=== PATIENT | male | born 1960 | race Hispanic/Latino ===

== ENCOUNTER → 2019-05-13 | Outpatient (CLI) | payer MEDICARE ==
[~2019-05-13] MED LIST: ALBUHFA IH; LORA-705 PO; MELO-108 PO; MIRALAX PO; OLAN10TA3 PO; OMEP40CA13 PO; PRAV20TA4 PO; [UNRECOGNIZED DRUG - OTHER] TP
--- NOTE | 2019-05-13 14:27 | NUR ---
MBSS COMPLETED. NON-TRANSIENT PENETRATION WITH ALL TEXTURES. RECOMMEND NPO, LONG-TERM ALTERNATE MEANS OF NUTRITION/HYDRATION. RECOMMENDATIONS; 1. GI CONSULT 2. ENT CONSULT RESULTS AND RECOMMENDATIONS DISCUSSES WITH PUBLIC AFFAIRS MANAGER CHEN GUERRERO AND PROVIDED VIA WRITTEN MODALITY. ROUGE PRESSER CONTACTED DR. HOOD'S OFFICE VIA TELEPHONE TO REPORT RESULTS AND RECOMMENDATIONS. ALL QUESTIONS ANSWERED AT THIS TIME. Addendum: 05/13/19 at 1430 by RUTH DEAN [facility] Amended: Links added.
== END | disposition home or self-care (01) ==
LOC: RAH 10:53
PROVIDERS: ATTEND Internal Medicine
DX: R13.13 Dysphagia, pharyngeal phase (principal); K21.9 Gastro-esophageal reflux disease without esophagitis; F20.9 Schizophrenia, unspecified
CPT/HCPCS: 74230; 92611

== ENCOUNTER 2021-01-09 18:41 | Emergency (ER) | payer MEDICARE ==
[~2021-01-09] VITALS: Ht 165.1 cm; Wt 54.4 kg
[~2021-01-09 18:41] MED LIST changes: +LORA-699 PO; -LORA-705 PO; -OMEP40CA13 PO; +OMEP40CA21 PO
[2021-01-09 19:08] VITALS: BP 108/65
[2021-01-09] MEDS ORDERED: DIATR MEGLU/DIATRIZOATE SODIUM 30 ML BOTTLE ONE (19:35)
[2021-01-09 20:07] VITALS: BP 116/63
== END 2021-01-09 20:12 | disposition home or self-care (01) ==
LOC: EDH 18:41
DX: K94.23 Gastrostomy malfunction (principal); Z79.1 Long term (current) use of non-steroidal anti-inflammatories (NSAID); Z79.899 Other long term (current) drug therapy
CPT/HCPCS: 43762; 74018; 99284; Q9963

== ENCOUNTER 2022-01-03 07:33 | Emergency (ER) | payer MEDICARE ==
[~2022-01-03] VITALS: Ht 165.1 cm; Wt 63.1 kg
[2022-01-03] MEDS ORDERED: DiphenhydrAMINE HCL 50 MG/ML VIAL IM ONE (08:00)
[2022-01-03] MEDS ORDERED: DIATR MEGLU/DIATRIZOATE SODIUM 30 ML BOTTLE ONE (09:11)
[2022-01-03] MEDS ORDERED: BACITRACIN 1 EACH PACKET TP ONE (09:19)
[2022-01-03 09:26] VITALS: BP 111/62
== END 2022-01-03 10:15 | disposition home or self-care (01) ==
LOC: EDH 07:33
DX: K94.23 Gastrostomy malfunction (principal); E78.00 Pure hypercholesterolemia, unspecified; F20.9 Schizophrenia, unspecified; K21.9 Gastro-esophageal reflux disease without esophagitis; Z79.1 Long term (current) use of non-steroidal anti-inflammatories (NSAID)
CPT/HCPCS: 99284; 43762; 74018; 96372; J1200; Q9963

== ENCOUNTER 2022-06-02 08:00 | Emergency (ER) | payer MEDICARE ==
[~2022-06-02] VITALS: Ht 175.3 cm; Wt 62.1 kg
[2022-06-02 08:02] VITALS: BP 102/58
[2022-06-02] MEDS ORDERED: DIATR MEGLU/DIATRIZOATE SODIUM 30 ML BOTTLE ONE (08:52)
== END 2022-06-02 10:05 | disposition home or self-care (01) ==
LOC: EDH 08:00
DX: Z43.1 Encounter for attention to gastrostomy (principal); K21.9 Gastro-esophageal reflux disease without esophagitis; E78.00 Pure hypercholesterolemia, unspecified; F20.9 Schizophrenia, unspecified; Z79.1 Long term (current) use of non-steroidal anti-inflammatories (NSAID); Z79.899 Other long term (current) drug therapy
CPT/HCPCS: 99284; 43762; 74018 ×2; Q9963

== ENCOUNTER 2022-07-31 08:34 | Emergency (ER) | payer MEDICARE ==
[~2022-07-31] VITALS: Ht 172.7 cm; Wt 57.2 kg
[2022-07-31] MEDS ORDERED: HALOPERIDOL INJ 5 MG/ML VIAL IV STA (09:07)
[2022-07-31] MEDS ORDERED: HALOPERIDOL INJ 5 MG/ML VIAL IV SCH (09:30)
[2022-07-31] MEDS ORDERED: LORAZEPAM 2 MG/ML 1 ML VIAL IVP ONE (09:30)
[2022-07-31] MEDS ORDERED: DIATR MEGLU/DIATRIZOATE SODIUM 30 ML BOTTLE ONE (09:58)
[2022-07-31 10:58] VITALS: BP 107/60
== END 2022-07-31 11:04 | disposition home or self-care (01) ==
LOC: EDH 08:34
DX: K94.23 Gastrostomy malfunction (principal); E78.00 Pure hypercholesterolemia, unspecified; K21.9 Gastro-esophageal reflux disease without esophagitis; F20.9 Schizophrenia, unspecified; Z88.6 Allergy status to analgesic agent; Z79.899 Other long term (current) drug therapy
CPT/HCPCS: 99285; 43762; 96374; 96375; 74018; Q9963; J1630; J2060

== ENCOUNTER 2022-09-04 17:26 | Emergency (ER) | payer MEDICARE ==
[~2022-09-04] VITALS: Ht 170.2 cm; Wt 61.7 kg
[2022-09-04] MEDS ORDERED: DIATR MEGLU/DIATRIZOATE SODIUM 30 ML BOTTLE ONE (20:45)
[2022-09-04 22:47] VITALS: BP 98/60
== END 2022-09-04 22:49 | disposition home or self-care (01) ==
LOC: EDH 17:26
DX: K94.23 Gastrostomy malfunction (principal); E78.00 Pure hypercholesterolemia, unspecified; F20.9 Schizophrenia, unspecified; K21.9 Gastro-esophageal reflux disease without esophagitis; Z79.1 Long term (current) use of non-steroidal anti-inflammatories (NSAID); Z88.6 Allergy status to analgesic agent
CPT/HCPCS: 99284; 43762; 74018; Q9963

== ENCOUNTER 2023-01-10 15:43 | Emergency (ER) | payer MEDICARE ==
[~2023-01-10] VITALS: Ht 165.1 cm; Wt 63.5 kg
[2023-01-10 15:46] VITALS: PULSE 60; RESP 16
[2023-01-10 15:50] VITALS: BP 106/41; O2SAT 96
[2023-01-10] MEDS ORDERED: DIATR MEGLU/DIATRIZOATE SODIUM 30 ML BOTTLE ONE (16:11)
== END 2023-01-10 17:04 | disposition home or self-care (01) ==
LOC: EDH 15:43
DX: K94.23 Gastrostomy malfunction (principal); E78.00 Pure hypercholesterolemia, unspecified; F20.9 Schizophrenia, unspecified; K21.9 Gastro-esophageal reflux disease without esophagitis; Z88.6 Allergy status to analgesic agent; Y83.9 Surgical procedure, unspecified as the cause of abnormal reaction of the patient, or of later complication, without mention of misadventure at the time of the procedure; Y82.8 Other medical devices associated with adverse incidents
CPT/HCPCS: 99284; 43762; 74018; Q9963

== ENCOUNTER 2023-01-21 20:37 | Emergency (ER) | payer MEDICARE ==
[~2023-01-21] VITALS: Ht 177.8 cm; Wt 83.9 kg
[2023-01-21 20:38] VITALS: BP 98/55; PULSE 59; RESP 16; O2SAT 100
[2023-01-21] MEDS ORDERED: DIATR MEGLU/DIATRIZOATE SODIUM 30 ML BOTTLE ONE (21:23)
== END 2023-01-21 22:52 | disposition home or self-care (01) ==
LOC: EDH 20:37
DX: K94.23 Gastrostomy malfunction (principal); K21.9 Gastro-esophageal reflux disease without esophagitis; E78.00 Pure hypercholesterolemia, unspecified; F20.9 Schizophrenia, unspecified; Z88.6 Allergy status to analgesic agent
CPT/HCPCS: 99284; 43762; 74018; Q9963

== ENCOUNTER 2023-01-28 00:09 | Emergency (ER) | payer MEDICARE ==
[~2023-01-28] VITALS: Ht 162.6 cm; Wt 57.2 kg
[2023-01-28] MEDS ORDERED: DIATR MEGLU/DIATRIZOATE SODIUM 30 ML BOTTLE ONE (02:04)
[2023-01-28 02:15] VITALS: BP 114/65; PULSE 78; RESP 16; O2SAT 98
== END 2023-01-28 02:19 ==
LOC: EDH 00:09
DX: K94.23 Gastrostomy malfunction (principal); E78.00 Pure hypercholesterolemia, unspecified; K21.9 Gastro-esophageal reflux disease without esophagitis; F20.9 Schizophrenia, unspecified
CPT/HCPCS: 99284; 43762; 74018; Q9963

== ENCOUNTER 2023-05-21 08:15 | Emergency (ER) | payer MEDICARE ==
[~2023-05-21] VITALS: Ht 172.7 cm; Wt 68.3 kg
[2023-05-21] MEDS ORDERED: KETAMINE 50MG/ML SYRINGE 50 MG/ML DISP.SYRIN IV ONE (09:30)
[2023-05-21] MEDS ORDERED: LACTATED RINGERS 1000ML 1,000 ML IV ONE (09:30)
[2023-05-21 10:37] VITALS: BP 115/64; PULSE 58; RESP 16; O2SAT 100
[2023-05-21] MEDS ORDERED: DIATR MEGLU/DIATRIZOATE SODIUM 30 ML BOTTLE ONE (10:42)
== END 2023-05-21 11:39 | disposition home or self-care (01) ==
LOC: EDH 08:15
DX: T85.598A Other mechanical complication of other gastrointestinal prosthetic devices, implants and grafts, initial encounter (principal); E78.00 Pure hypercholesterolemia, unspecified; F20.9 Schizophrenia, unspecified; K21.9 Gastro-esophageal reflux disease without esophagitis; Z88.6 Allergy status to analgesic agent; Y83.8 Other surgical procedures as the cause of abnormal reaction of the patient, or of later complication, without mention of misadventure at the time of the procedure; Y92.89 Other specified places as the place of occurrence of the external cause
CPT/HCPCS: 99284; 96374; 96361; 74018; J7120; Q9963; J3490

== ENCOUNTER 2023-07-03 08:25 | Emergency (ER) | payer MEDICARE ==
[~2023-07-03] VITALS: Ht 167.6 cm; Wt 64.0 kg
[2023-07-03 08:26] VITALS: BP 92/54; PULSE 74; RESP 18
[2023-07-03] MEDS ORDERED: DIATR MEGLU/DIATRIZOATE SODIUM 30 ML BOTTLE ONE (09:53)
== END 2023-07-03 11:39 | disposition home or self-care (01) ==
LOC: EDH 08:25
DX: Z43.1 Encounter for attention to gastrostomy (principal); E78.00 Pure hypercholesterolemia, unspecified; K21.9 Gastro-esophageal reflux disease without esophagitis; F20.9 Schizophrenia, unspecified; Z79.899 Other long term (current) drug therapy; Z98.890 Other specified postprocedural states
CPT/HCPCS: 99284; 43762; 74018; Q9963

== ENCOUNTER → 2023-07-17 | Outpatient (CLI) | payer MEDICARE | END | disposition home or self-care (01) | LOC: RAH 13:16 | PROVIDERS: ATTEND Internal Medicine | DX: R63.4 Abnormal weight loss (principal); R13.10 Dysphagia, unspecified; K31.84 Gastroparesis | CPT/HCPCS: 74230; 92611 ==

== ENCOUNTER 2023-09-26 07:52 | Emergency (ER) | payer MEDICARE ==
[~2023-09-26] VITALS: Ht 172.7 cm; Wt 65.8 kg
[2023-09-26 10:56] VITALS: BP 107/67; PULSE 61; RESP 16; O2SAT 97
== END 2023-09-26 10:58 | disposition home or self-care (01) ==
LOC: EDH 07:52
DX: Z44.8 Encounter for fitting and adjustment of other external prosthetic devices (principal); E78.00 Pure hypercholesterolemia, unspecified; F20.9 Schizophrenia, unspecified; K21.9 Gastro-esophageal reflux disease without esophagitis; Z88.6 Allergy status to analgesic agent; Z98.890 Other specified postprocedural states; Z79.899 Other long term (current) drug therapy
CPT/HCPCS: 74018

== ENCOUNTER 2023-09-26 19:06 | Emergency (ER) | payer MEDICARE ==
[~2023-09-26] VITALS: Ht 177.8 cm; Wt 70.3 kg
[2023-09-26] MEDS ORDERED: DIATR MEGLU/DIATRIZOATE SODIUM 30 ML BOTTLE ONE (22:51)
[2023-09-26 23:12] VITALS: BP 122/53; PULSE 53; RESP 16; O2SAT 99
== END 2023-09-26 23:23 | disposition home health service (06) ==
LOC: EDH 19:06
DX: K94.23 Gastrostomy malfunction (principal); K21.9 Gastro-esophageal reflux disease without esophagitis; E78.00 Pure hypercholesterolemia, unspecified; F20.9 Schizophrenia, unspecified; Z88.6 Allergy status to analgesic agent
CPT/HCPCS: 99284 ×2; 43762; 74018 ×2; Q9963 ×2

== ENCOUNTER 2024-03-05 07:33 | Day surgery (SDC) | payer MEDICARE ==
[~2024-03-05] VITALS: Ht 170.2 cm; Wt 86.2 kg
[2024-03-05] VITALS (11 sets, daily range): BP systolic 95–111; BP diastolic 49–56; PULSE 52–54; RESP 14–16; TEMP 96.6–98.4
[2024-03-05] MEDS ORDERED: POLY454P5 PEG (09:39)
[2024-03-05] MEDS ORDERED: CITA10TA89 PEG (09:39)
[2024-03-05] MEDS ORDERED: OMEP40CA21 PEG (09:39)
[2024-03-05] MEDS ORDERED: OLAN15TA2 PEG (09:39)
[2024-03-05] MEDS ORDERED: MONT-39 PEG (09:39)
[2024-03-05] MEDS ORDERED: [UNRECOGNIZED DRUG - CODE] PEG (09:39)
[2024-03-05] MEDS ORDERED: BISA-151 PEG (09:39)
[2024-03-05] MEDS ORDERED: PRAV20TA4 PEG (09:39)
[2024-03-05] MEDS: 0.9%NACL 1000ML 1,000 ML IV ONE (09:42)
[2024-03-05] MEDS ORDERED: proPOFol 10 MG/ML 20ML VIAL IV ONE (10:31)
== END 2024-03-05 12:05 | disposition home or self-care (01) ==
LOC: DAH 07:33 → ENDO 07:33
PROVIDERS: ATTEND Internal Medicine Gastroenterology
DX: K94.23 Gastrostomy malfunction (principal); R13.12 Dysphagia, oropharyngeal phase; R63.30 Feeding difficulties, unspecified; K21.9 Gastro-esophageal reflux disease without esophagitis; Z79.899 Other long term (current) drug therapy; Z79.01 Long term (current) use of anticoagulants
CPT/HCPCS: 43246; J7030; J2704; A4615; A4215; J3490

== ENCOUNTER 2024-03-22 19:11 | Emergency (ER) | payer MEDICARE ==
[~2024-03-22] VITALS: Ht 177.8 cm; Wt 70.3 kg
[~2024-03-22 19:11] MED LIST changes: -ALBUHFA IH; +BISA-151 PEG; +CITA10TA89 PEG; -LORA-699 PO; -MELO-108 PO; -MIRALAX PO; +MONT-39 PEG; -OLAN10TA3 PO; +OLAN15TA2 PEG; +OMEP40CA21 PEG; -OMEP40CA21 PO; +POLY454P5 PEG; +PRAV20TA4 PEG; -PRAV20TA4 PO; +[UNRECOGNIZED DRUG - CODE] PEG; -[UNRECOGNIZED DRUG - OTHER] TP
[2024-03-22 19:47] VITALS: BP 107/53; PULSE 57; RESP 17; TEMP 97.5; O2SAT 100
== END 2024-03-22 20:10 | disposition home or self-care (01) ==
LOC: EDH 19:11
DX: K94.23 Gastrostomy malfunction (principal); E78.00 Pure hypercholesterolemia, unspecified; F20.9 Schizophrenia, unspecified; K21.9 Gastro-esophageal reflux disease without esophagitis; Z88.6 Allergy status to analgesic agent
CPT/HCPCS: 43762

== ENCOUNTER 2024-09-18 07:25 | Emergency (ER) | payer MEDICARE ==
[~2024-09-18] VITALS: Ht 175.3 cm; Wt 70.3 kg
[2024-09-18] MEDS ORDERED: DIATR MEGLU/DIATRIZOATE SODIUM 30 ML BOTTLE ONE (08:15)
--- NOTE | 2024-09-18 09:51 | ERN ---
General Chief Complaint: Other Problems Stated Complaint: G TUBE OUT Time Seen by MD: 07:28 Source: patient, high school librarian History of Present Illness Initial Comments PATIENT IS A 64-YEAR-OLD GENTLEMAN LIVING IN AN ASSISTED LIVING HOUSEHOLD COMES IN DUE TO PEG TUBE WHICH HE REMOVED. PATIENT IS A POOR HISTORIAN UNTIL CAPACITY IS LOW. Allergies: Coded Allergies: NSAIDS (Non-Steroidal Anti-Inflamma (Unverified Allergy, Unknown, 07/31/22) No Known Drug Allergies (Unverified Allergy, Unknown, 06/05/15) Home Meds Reported Medications Nutritional Supplement (Osmolite 1.2 Roc) 0.06 Gram-1.2 Kcal/Ml Liquid, 237 ML PEG 5X/DAY 03/05/24 Citalopram Hydrobromide (Citalopram HBr) 10 Mg Tablet, 10 MG PEG HS, TAB 03/05/24 Montelukast Sodium (Montelukast Sodium) 10 Mg Tablet, 10 MG PEG AM, TAB 03/05/24 Bisacodyl (Bisacodyl) 5 Mg Tablet.dr, 5 MG PEG AM, TAB 03/05/24 Polyethylene Glycol 1000 (Polyethylene Glycol) 500 Gm Powder, 17 GM PEG DAILY, APPL 03/05/24 Omeprazole (Omeprazole) 40 Mg Capsule.dr, 40 MG PEG AM, CAP 03/05/24 Pravastatin Sodium (Pravastatin Sodium) 20 Mg Tablet, 20 MG PEG HS, TAB 03/05/24 Olanzapine (Zyprexa) 15 Mg Tablet, 15 MG PEG BID, TAB 03/05/24 Past Medical History Past Medical History: Diverticulitis, GERD, High Cholesterol, Schizophrenia Medical History Other: ADAH, DISK , DYSPHAGIA, COLON POLYPS,ESOPHAGEAL REFLUX Past Surgical History: Other Surgical History Other: PEG, CERVICAL SX Family History Family History: Negative Social History Social History: [place], Other ROS Dictation ROS LIMITED Physical Exam Physical Exam Dictation VITAL SIGNS: REVIEWED. GENERAL APPEARANCE: ALERT, ORIENTED X3, NO ACUTE DISTRESS, OBESE. HEAD AND FACE: NON-TRAUMATIC. EYES: PERRL, PINK CONJUNCTIVAS, EYELID NO TRAUMA, ANTERIOR CHAMBER CLEAR. EARS: PINNAS INTACT AND NO SIGNS OF TRAUMA OR ERYTHEMA. EAR CANALS CLEAR AND NO DISCHARGE. TMS NO ERYTHEMA. NOSE: NO DISCHARGE, NO BLEEDING. OROPHARYNX: MOUTH NORMAL, TEETH NO CARIES, TONGUE PINK. PHARYNX CLEAR, NO ERYTHEMA. TONSILS NO EXUDATES, NO ABSCESSES NOTED. MUCOUS MEMBRANE MOIST. NECK: SUPPLE, NON-TENDER, NO THYROMEGALY, NO MASSES, NO JVD, NO BRUITS. BREAST: DEFERRED. CHEST: NO TENDERNESS, NO CREPITUS, NO PARADOXICAL MOVEMENT, NO RETRACTIONS. LUNGS: CLEAR, WELL-VENTILATED, SYMMETRIC, NO RALES, NO WHEEZING, NO RHONCHI, NO STRIDOR, GOOD BREATH SOUNDS BILATERALLY. HEART: REGULAR RATE, REGULAR RHYTHM, NO MURMUR, NO GALLOPS. VASCULAR: NO PERIPHERAL EDEMA. ABDOMEN: SOFT, POSITIVE BOWEL SOUNDS, NONDISTENDED, NO GUARDING, NONTENDER, NO REBOUND, NO MASSES NO HEPATOMEGALY, NO SPLENOMEGALY, NO REYES'S SIGN, NO HERNIAS. RECTAL: DEFERRED. GENITAL: DEFERRED. NEUROLOGICAL: NORMAL SPEECH, GROSS MOTOR FUNCTION INTACT, GROSS SENSORY FUNCTION INTACT. MUSCULOSKELETAL: NECK NONTENDER, FULL RANGE OF MOTION, BACK NONTENDER, FULL RANGE OF MOTION. EXTREMITIES: NONTENDER, FULL RANGE OF MOTION. SKIN: COLOR PINK, DRY, NO TURGOR, NO RASH, NO LACERATIONS, NO ABRASIONS, NO CONTUSIONS. LYMPHATICS: DEFERRED. Results Laboratory and Microbiology Labs Reviewed?: Yes EKG/XRAY/US/CT/MRI X-RAY Comment [place] [address] [address] IMAGING REPORT Signed PATIENT: SUSANA CASTILLO MR#: [id number] : 1960 SEX: M AGE: 64 LOCATION: [facility] ORDER [id number] STATUS: REG ER REPORT#: [id number] SERVICE [id number] REASON: peg tube placement/ gastrograffin ORDERING PHYSICIAN: ADEBAYO CLAYTON MD PROCEDURE: ABD 1VW - ABD 1VW ABD 1VW HISTORY: PEG tube placement COMPARISON: None FINDINGS: A frontal projection of the abdomen was obtained. Contrast was given through PEG tube with opacification of stomach and proximal small bowel loops. No extravasation of contrast is seen. PEG tube is seen with distal tip in the stomach. A nonspecific bowel gas pattern is seen. Fecal material is seen in the colon. Degenerative changes of the thoracolumbar spine are noted. IMPRESSION: 1. A nonspecific bowel gas pattern is seen. DICTATED BY: JOSSELIN GALAVIZ MD DATE: 09/18/2455 ELECTRONICALLY SIGNED BY: JOSSELIN GALAVIZ MD DATE: 09/18/2458 [facility] MDM: DIFFERENTIAL DIAGNOSIS: PEG TUBE MALFUNCTION, PEG TUBE REPLACEMENT, RATIONALE: TESTS CONSIDERED AND ORDERED SECONDARY TO SHARED DECISION MAKING INCLUDE: PREVIOUS OUTSIDE RECORDS REVIEWED: OLD ER VISITS. 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 PER PATIENT'S TRAINING DEVELOPMENT MANAGER PATIENT HAS VERY LIMITED MENTAL CAPACITY AND REMOVED HIS PEG TUBE FOR SLOWLY. PEG TUBE WAS REPLACED IN THE ER X-RAY CONFIRMS PLACEMENT. PATIENT WILL BE DISCHARGED IN STABLE CONDITION ED Course Orders Procedure Category Date Status Time Abd 1vw RAD 09/18/24 Resulted 07:57 Diatr PHA 09/18/24 Complete Meglu/Diatrizoate 08:15 Current Medications Medications (Trade) Dose Ordered Sig/Melany Route PRN Reason Start Time Stop Time Status Last Admin Dose Admin Diatrizoate Meglum/ Diatrizoate Sod (Gastrografin 66-10 Solution) 30 ml STK-MED ONCE .ROUTE 09/18/24 08:15 09/18/24 08:16 DC Vital Signs Date Time Temp Pulse Resp B/P (MAP) Pulse Ox O2 Delivery O2 Flow Rate FiO2 09/18/24 07:27 97.5 60 18 104/60 98 Room Air 09/18/24 07:27 97.5 60 18 104/60 98 Room Air* 0 21 DX & DISP Disposition: Discharge Departure Impression: Primary Impression: Encounter for PEG (percutaneous endoscopic gastrostomy) Condition: Stable Additional Instructions: Follow up with your Primary physcian in 2-3 days. Take medications as prescribed. Please return to the emergency if symptoms return or worsen. Referrals: JUJU HOOD MD (PCP) Time of Disposition: 10:03 ADEBAYO CLAYTON MD Sep 18, 2024 09:51
--- NOTE | 2024-09-18 09:58 | HMCIMG ---
ABD 1VW HISTORY: PEG tube placement COMPARISON: None FINDINGS: A frontal projection of the abdomen was obtained. Contrast was given through PEG tube with opacification of stomach and proximal small bowel loops. No extravasation of contrast is seen. PEG tube is seen with distal tip in the stomach. A nonspecific bowel gas pattern is seen. Fecal material is seen in the colon. Degenerative changes of the thoracolumbar spine are noted. IMPRESSION: 1. A nonspecific bowel gas pattern is seen.
[2024-09-18 10:04] VITALS: BP 101/67; PULSE 61; RESP 12; TEMP 97.5; O2SAT 98
== END 2024-09-18 10:05 | disposition home or self-care (01) ==
LOC: EDH 07:25
DX: Z46.59 Encounter for fitting and adjustment of other gastrointestinal appliance and device (principal); E78.00 Pure hypercholesterolemia, unspecified; F20.9 Schizophrenia, unspecified; Z88.6 Allergy status to analgesic agent; Z98.890 Other specified postprocedural states
CPT/HCPCS: 99284; 43762; 74018; Q9963

== ENCOUNTER 2024-11-25 16:12 | Emergency (ER) | payer MEDICARE ==
[~2024-11-25] VITALS: Ht 177.8 cm; Wt 62.6 kg
[~2024-11-25 16:12] MED LIST changes: -PRAV20TA4 PEG; +PRAV20TA59 PEG
--- NOTE | 2024-11-25 16:26 | ERN ---
ED Note History of Present Illness Stated Complaint: DR FALLON Chief Complaint: Other Problems Time Seen by MD: 16:17 Dictation: PATIENT IS A 64-YEAR-OLD MALE HERE WITH A MEDICAL PROVIDER WITH COMPLAINTS OF NEEDING AN 18 BHUTANESE G-TUBE REPLACED. HE HAD GONE TO SEE DR. RADHA BOYD ART APPRAISER, 18 BHUTANESE G-TUBE CURRENTLY IN PLACE HIS LEAKING AND DR. BOYD WOULD LIKE IT REPLACED. Allergies: Coded Allergies: NSAIDS (Non-Steroidal Anti-Inflamma (Unverified Allergy, Unknown, 07/31/22) No Known Drug Allergies (Unverified Allergy, Unknown, 06/05/15) Home Meds Reported Medications Nutritional Supplement (Osmolite 1.2 Roc) 0.06 Gram-1.2 Kcal/Ml Liquid, 237 ML PEG 5X/DAY 03/05/24 Citalopram Hydrobromide (Citalopram HBr) 10 Mg Tablet, 10 MG PEG HS, TAB 03/05/24 Montelukast Sodium (Montelukast Sodium) 10 Mg Tablet, 10 MG PEG AM, TAB 03/05/24 Bisacodyl (Bisacodyl) 5 Mg Tablet.dr, 5 MG PEG AM, TAB 03/05/24 Polyethylene Glycol 1000 (Polyethylene Glycol) 500 Gm Powder, 17 GM PEG DAILY, APPL 03/05/24 Omeprazole (Omeprazole) 40 Mg Capsule.dr, 40 MG PEG AM, CAP 03/05/24 Pravastatin Sodium (Pravastatin Sodium) 20 Mg Tablet, 20 MG PEG HS, TAB 03/05/24 Olanzapine (Zyprexa) 15 Mg Tablet, 15 MG PEG BID, TAB 03/05/24 Past Medical History Past Medical History: Diverticulitis, GERD, High Cholesterol, Schizophrenia Additional Past Medical Hx: ADAH, DISK , DYSPHAGIA, COLON POLYPS,ESOPHAGEAL REFLUX Surgical History: Other Surgical History Other: PEG, CERVICAL SX Family History: Negative Social History: Lives in Custodial, Other RN Note Reviewed/Agreed w/PFSH: Yes Review of System Dictation CONSTITUTIONAL: NEGATIVE EXCEPT FOR HPI HEAD/FACE: NEGATIVE EXCEPT FOR HPI EENT: NEGATIVE EXCEPT FOR HPI RESPIRATORY: NEGATIVE EXCEPT FOR HPI GASTROINTESTINAL/ABDOMINAL: NEGATIVE EXCEPT FOR HPI 18 BHUTANESE G-TUBE IN PLACE NEEDS REPLACE GENITOURINARY: NEGATIVE EXCEPT FOR HPI MUSCULOSKELETAL: NEGATIVE EXCEPT FOR HPI INTEGUMENTARY: NEGATIVE EXCEPT FOR HPI NEUROLOGICAL/PSYCH: NEGATIVE EXCEPT FOR HPI HEMATOLOGIC/LYMPHATIC: NEGATIVE EXCEPT FOR HPI ALL SYSTEMS NEGATIVE, EXCEPT NOTED ABOVE. 13 POINT REVIEW OF SYSTEMS ASSESSED AND ALL NEGATIVE EXCEPT FOR ABOVE. Initial Vital Sign VS Vital Signs Date Time Temp Pulse Resp B/P (MAP) Pulse Ox O2 Delivery O2 Flow Rate FiO2 11/25/24 16:25 98.2 56 18 102/49 100 Room Air 0 Physical Exam Dictation VITAL SIGNS REVIEWED GENERAL APPEARANCE: ALERT, ORIENTED X 3, NO ACUTE DISTRESS, WELL DEVELOPED, NOURISHED. HEAD AND FACE: NON-TRAUMATIC. EYES: PERRL, PINK CONJUNCTIVAS, EYELID NO TRAUMA, ANTERIOR CHAMBER WITH ARCUS SENILIS. EARS: PINNAS INTACT AND NO SIGNS OF TRAUMA OR ERYTHEMA EAR CANALS CLEAR AND NO DISCHARGE TM NO ERYTHEMA NOSE: NO DISCHARGE, NO BLEEDING. OROPHARYNX: MOUTH NORMAL, TONGUE PINK, PHARYNX CLEAR,NO ERYTHEMA, TONSILS NO EXUDATES, NO ABSCESSES NOTED, MUCOUS MEMBRANE MOIST NECK: SUPPLE, NON-TENDER, NO THYROMEGALY, NO MASSES, NO JVD, NO BRUITS BREAST:DEFERRED CHEST:NO TENDERNESS, NO CREPITUS, NO PARADOXICAL MOVEMENT, NO RETRACTIONS LUNGS:CLEAR, WELL-VENTILATED, SYMMETRIC, NO RALES, NO WHEEZING, NO RHONCHI, NO STRIDOR, GOOD BREATH SOUNDS BILATERALLY HEART: REGULAR RATE, REGULAR RHYTHM, NO MURMUR, NO GALLOPS VASCULAR: NO PERIPHERAL EDEMA, ABDOMEN: SOFT, POSITIVE BOWEL SOUNDS, NONDISTENDED, NO GUARDING, NONTENDER, NO REBOUND, NO MASSES NO HEPATOMEGALY, NO SPLENOMEGALY, NO REYES'S SIGN, NO HERNIAS. EIGHTEEN BHUTANESE G-TUBE TO LEFT UPPER QUADRANT STOMA WITHOUT ERYTHEMA RECTAL: DEFERRED GENITAL: DEFERRED NEUROLOGICAL: NORMAL SPEECH, MOTOR FUNCTION INTACT, SENSORY FUNCTION INTACT MUSCULOSKELETAL: NECK NONTENDER, FULL RANGE OF MOTION, BACK NONTENDER, FULL RANGE OF MOTION, EXTREMITIES: NONTENDER, FULL RANGE OF MOTION SKIN: COLOR PINK, DRY, NO TURGOR, NO RASH, NO LACERATIONS, NO ABRASIONS, NO CONTUSIONS. LYMPHATIC: DEFERRED Results (Laboratory/Radiology) Laboratory/Radiology KUB G-tube in place Labs Reviewed?: Yes ED Course ED Course Orders Procedure Category Date Status Time *Nursing CPOE 11/25/24 Transmitted Communication: 16:25 Abd 1vw RAD 11/25/24 Taken 16:52 Vital Signs Date Time Temp Pulse Resp B/P (MAP) Pulse Ox O2 Delivery O2 Flow Rate FiO2 6/24/25 16:25 98.2 56 18 102/49 100 Room Air 0 Medical Decision Making MDM 1805/G-tube replaced Medical decision-making based after KUB was shot to verify placement Patient discharged home with medical provider to resume all meds and treatments through the G-tube. Procedure Procedure Dictation: 1650/PROCEDURE EXPLAINED TO PATIENT AND MEDICAL GUARDIAN THEY AGREED TO PROCEED 10 ML SALINE WAS REMOVED FROM OLD G-TUBE IN PLACE AND IT WAS REMOVED WITHOUT DIFFICULTY 20 BHUTANESE G-TUBE WAS PLACED WITHOUT DIFFICULTY STOMA, 10 ML OF SALINE TO BALLOON. VERIFY PLACEMENT AIR BOLUS AND AUSCULTATION. PATIENT TOLERATED WELL WE WILL FOLLOW UP WITH KUB TO VERIFY PLACEMENT DX & DISP Disposition: Discharge Departure Impression: Primary Impression: Gastrojejunostomy tube dislodgement Condition: Stable Additional Instructions: Follow-up with primary care provider in 1 to 2 days. Take medications as directed here in the emergency room. Okay to continue home medications unless otherwise discussed during your visit in the emergency room today. Return to your nearest emergency room if symptoms worsen or if there is no improvement. Call 911 if you need immediate assistance. Take Tylenol or Motrin [id number] as needed and if no contraindications are present. Increase oral hydration. A wound culture or urine culture was ordered here in the emergency room department please follow-up with primary care provider and advise them to get repeat ports from our facility. If you had any [facility] wrap/splints that were applied here, please do not remove them until you see your primary care or specialty. Continue all medications and treatments from your G-tube. With your primary care doctor as needed. Referrals: JUJU HOOD MD (PCP) Time of Disposition: 18:07 I have reviewed the case, and I agree with, Diagnosis and Plan STEVAN TAVERAS NP Nov 25, 2024 16:26
--- NOTE | 2024-11-25 16:52 | NUR ---
18 FR PEG EXCHANGED FOR A 2 FR PEG TUBE. PT TOLERATED PROCEDURE WELL.
[2024-11-25 18:15] VITALS: BP 105/61; PULSE 77; RESP 14; TEMP 98.1; O2SAT 99
--- NOTE | 2024-11-25 18:16 | HMCIMG ---
ABDOMEN SINGLE VIEW INDICATION: G-tube evaluation COMPARISON: None FINDINGS/IMPRESSION: Supine view only Gastrostomy tube in appropriate position, and contrast material noted within the stomach and proximal small bowel without extravasation or free air.
[2024-11-25] MEDS ORDERED: DIATR MEGLU/DIATRIZOATE SODIUM 30 ML BOTTLE ONE (20:27)
== END 2024-11-25 18:25 | disposition home or self-care (01) ==
LOC: EDH 16:12
DX: K94.23 Gastrostomy malfunction (principal); E78.00 Pure hypercholesterolemia, unspecified; F20.9 Schizophrenia, unspecified; Z88.6 Allergy status to analgesic agent
CPT/HCPCS: 99284; 43762; 74018; Q9963